=== PATIENT | female | born 1960 | race Caucasian/White ===

== ENCOUNTER 2020-04-05 07:08 | Outpatient (REF) | payer OTHER, SELFPAY ==
[2020-04-05 11:35] LABS: Estimated Average Glucose 128 mg/dL; Hemoglobin A1C 150.0443 umol/L; Hemoglobin A1c % 6.1 %
[2020-04-05 12:01] LABS: Anion Gap 15 (12-20); Blood Urea Nitrogen 12 mg/dL (9-16); Calcium 9.1 mg/dL (8.4-10.2); Carbon Dioxide 24 mmol/L (22-29); Chloride 105 mmol/L (96-108); Estimated Glomerular Filt Rate > 60; Glucose Fasting 104 mg/dL (60-99); Potassium 4.2 mmol/l (3.3-5.1); Sodium 140 mmol/L (135-145); Vitamin D 25-OH Total 47.1 ng/mL (>30)
== END 2020-04-05 07:09 | disposition home or self-care (01) ==
LOC: HO.HMGCLDS 07:08
PROVIDERS: PCP Internal Medicine; Visit Provider Internal Medicine
DX: E55.9 Vitamin D deficiency, unspecified (principal); R73.01 Impaired fasting glucose; I10 Essential (primary) hypertension
CPT/HCPCS: 80048; 82306; 83036

== ENCOUNTER 2020-04-30 07:18 | Outpatient (REF) | payer OTHER, SELFPAY ==
--- NOTE | 2020-04-30 07:24 | MM_ITS ---
EXAMINATION: MM SCREENING DIGITAL BREAST TOMOSYNTHESIS, BILATERAL CLINICAL INFORMATION: Screening. Asymptomatic. The lifetime risk of breast cancer based on the Tyrer-Cuzick Model is 11%. COMPARISON: Mammography: 04/10/2013, 10/25/2010 TECHNIQUE: Digital breast tomosynthesis is performed in both the craniocaudal and mediolateral oblique views along with computer-aided detection (CAD). Synthesized 2D images are generated from the tomosynthesis. FINDINGS: There are scattered areas of fibroglandular density (ACR BI-RADS breast composition Category b). There are no significant masses, abnormal calcifications, or other abnormalities. The axilla and skin contours are unremarkable. MM/MM tomosynthesis screening BI IMPRESSION: No mammographic evidence of malignancy. ASSESSMENT: BI-RADS 1: Negative RECOMMENDATION: Routine annual mammography screening. This patient's information was entered into a reminder system with a target due date for their next mammogram.
== END 2020-04-30 07:19 | disposition home or self-care (01) ==
LOC: HO.MAMMO 07:18
PROVIDERS: PCP Internal Medicine; Visit Provider Internal Medicine
DX: Z78.0 Asymptomatic menopausal state (principal)
CPT/HCPCS: 77063; 77067

== ENCOUNTER 2020-06-01 09:32 | Outpatient (REF) | payer OTHER, SELFPAY ==
--- NOTE | 2020-06-01 | MM_ITS ---
EXAMINATION: BONE DENSITOMETRY CLINICAL INDICATION: Asymptomatic menopausal state. COMPARISON: Baseline BD dated 11/24/2011. TECHNIQUE: Using a [employer] DXA System (software version: 13.1) manufactured by [employer], dual-energy x-ray absorptiometry was performed of the lumbar spine and left hip. The images are of good technical quality. Summary results are attached. FINDINGS: AP SPINE L1-L4: Current: BMD 1.198 g/cm2, Z-score 1.3, T-score 0.2, normal, 13.5% decrease from baseline (<5% change is not significant). Baseline: BMD 1.385 g/cm2. LEFT FEMUR, NECK: Current: BMD 1.063 g/cm2, Z-score 1.4, T-score 0.2, normal. Baseline: BMD 1.257 g/cm2. LEFT FEMUR, TOTAL: Current: BMD 1.177 g/cm2, Z-score 2.2, T-score 1.3, normal, 13.8% decrease from baseline (<5% change is not significant). Baseline: BMD 1.366 g/cm2. IDENTIFIED RISK FACTORS: Menopause. HISTORY OF FRACTURE: None listed. MEDICATIONS: None listed. MM/XR DEXA axial skeleton IMPRESSION: 1. DIAGNOSIS: Normal bone density based on the lowest T-score value of 0.2 in the lumbar spine and femoral neck applying World Health Organization criteria. 2. 10-YEAR FRACTURE RISK PREDICTION, FRAX: Major osteoporotic fracture (clinical spine, forearm, hip or shoulder) 6.0%. Hip fracture 0.1%. 3. Treatment Recommendations: NOF guidelines recommend consideration for treatment in postmenopausal women and men age 50 and older presenting with the following: -A hip or vertebral (clinical or morphometric) fracture. -T-score less than or equal to -2.5 at the femoral neck or spine after appropriate evaluation to exclude secondary causes. -Low bone mass at the hip or spine and a 10-year fracture probability by FRAX of greater than or equal to 3% for hip fracture or greater than or equal to 20% for major osteoporotic fracture based on the [place] adapted WHO algorithm. 4. Other Recommendations: All treatment decisions require clinical judgment and consideration of individual patient factors, including patient preferences, comorbidities, previous drug use, risk factors not captured in the FRAX model (e.g. frailty, falls, vitamin D deficiency, increased bone turnover, interval significant decline in bone density) and possible under or overestimation of fracture risk by FRAX. FUTURE SCAN RECOMMENDATION: People with diagnosed cases of osteoporosis or at high risk for fracture should have regular bone mineral density tests. For patients eligible for Medicare, routine testing is allowed once every 2 years. The testing frequency can be increased to one year for patients who have rapidly progressing disease, those who are receiving or discontinuing medical therapy to restore bone mass, or have additional risk factors.
== END 2020-06-01 09:33 | disposition home or self-care (01) ==
LOC: HO.MAMMO 09:32
PROVIDERS: PCP Internal Medicine; Visit Provider Internal Medicine
DX: Z13.820 Encounter for screening for osteoporosis (principal); Z78.0 Asymptomatic menopausal state
CPT/HCPCS: 77080

== ENCOUNTER 2020-06-17 06:25 | Day surgery (SDC) | payer BC, SELFPAY ==
[2020-06-11 12:40] VITALS: BMI 28.7
--- NOTE | 2020-06-16 08:25 | P.CONAN_ITS ---
Documented by User: Joan Quijano 06/16/20 08:25 HPI - Anesthesia Eval Consult details Narrative: 60yo F for Colonoscopy [facility] Past Medical History Medical History Essential hypertension Hypertriglyceridemia Impaired fasting glucose Influenza vaccination declined Menopausal and postmenopausal disorder Family History Family History Father Medical history non-contributory Mother Bladder cancer Breast cancer Maternal Aunt Breast cancer Brother No problems noted. Sister No problems noted. Daughter No problems noted. Surgical History Surgical History No pertinent past surgical history Social History Social History Alcohol intake: current Smoking Status: Former smoker Second Hand Smoke Exposure: No Use of substances other than those prescribed or required for medical reasons: No Advance Directives: No Advance Directives Information Provided: No Advance Directives on File: No Meds Allergies Allergy/AdvReac Type Severity Reaction Status Date / Time No Known Allergies Allergy Verified 04/22/20 08:17 Home Medications Medication Instructions Recorded Confirmed Type cholecalciferol (vitamin D3) 1,250 1,250 mcg PO QWEEK 04/22/20 06/11/20 History mcg (50,000 unit) capsule lisinopril 10 mg tablet 10 mg PO DAILY 04/22/20 06/17/20 History Exam Exam Date and Time: June 16, 2020 0825 Height,Weight and Vital Signs: Height 5 ft 1 in Weight 69 kg Assessment and Plan Assessment Anesthesia Assessment: Chart Reviewed Documented by User: Eliu Steinberg 06/17/20 07:42 [facility] Past Medical History Medical History Essential hypertension Hypertriglyceridemia Impaired fasting glucose Influenza vaccination declined Menopausal and postmenopausal disorder Family History Family History Father Medical history non-contributory Mother Bladder cancer Breast cancer Maternal Aunt Breast cancer Brother No problems noted. Sister No problems noted. Daughter No problems noted. Surgical History Surgical History No pertinent past surgical history Social History Social History Alcohol intake: current Smoking Status: Former smoker Second Hand Smoke Exposure: No Use of substances other than those prescribed or required for medical reasons: No Advance Directives: No Advance Directives Information Provided: No Advance Directives on File: No Meds Allergies Allergy/AdvReac Type Severity Reaction Status Date / Time No Known Allergies Allergy Verified 04/22/20 08:17 Home Medications Medication Instructions Recorded Confirmed Type cholecalciferol (vitamin D3) 1,250 1,250 mcg PO QWEEK 04/22/20 06/11/20 History mcg (50,000 unit) capsule lisinopril 10 mg tablet 10 mg PO DAILY 04/22/20 06/17/20 History Exam Airway Mallampati Class: II TM Dist: >3cm Neck ROM: Full Loose/Missing/Broken Teeth: No Heart: [id number] Lungs: cta b/l Assessment and Plan Assessment Anesthesia Assessment: Anesthesia Plan Discussed, PAT Visit and Chart Reviewed Final Anesthetic Review NPO: Yes ASA Class: II Final Preanesthetic Review: No Changes in Pt Med Stat, Meds/Allgs Chart Reviewed, Consent Obtained/Reviewed and Anes Risks/Benef Reviewed Patient Risk: Low Procedure Risk: Low Assessment/Block/Sedation in SS: Assess/Block/Sedation-SS Anesthetic Plan Anesthetic Plan: MAC: and Agree w/ Assess. and Plan Disposition: Standard PACU
[2020-06-17 06:54] VITALS: BP 141/79; PULSE 108; RESP 16; TEMP 36.3; O2SAT 97
[2020-06-17] MEDS: Lactated Ringers 1,000 ML 100 ML IVCONT (06:59)
--- NOTE | 2020-06-17 07:02 | PC.NURSE ---
weight 151 pounds per patient, height 5'1
--- NOTE | 2020-06-17 07:43 | MHC.SHP ---
Pre-Procedural Eval Section B Chief Complaint: Screening Details of Present Illness: Colon cancer screening (Sister with polyp on 5yr recall.) Relevant Family History (Specify if Yes): Yes Relevant Social History: None Present Medications: see Short Stay Collaborative assessment Medical History: Significant History (Hypertension) History of Previous Operations: No relevant previous surgery Allergies: Allergies Allergy/AdvReac Type Severity Reaction Status Date / Time No Known Allergies Allergy Verified 04/22/20 08:17 Review of Systems Sugical H&P ROS: Negative: Constitution, Cardiovascular, Respiratory, Gastrointestinal and Musculoskeletal Exam Surgical H&P Exam: Normal: HEENT, Normal: Heart, Normal: Extremities and Normal: Abdomen Plan Diagnosis/Plan: Unchanged I have reviewed the history and physical and performed a pertinent YES physical examination on my patient. No changes have occurred unless specified.
--- NOTE | 2020-06-17 08:28 | PM.PROC ---
Brief Operative Note Date of procedure: 06/17/20 Pre-op diagnosis: COLON CANCER SCREENING-+ FAM HX Post-op diagnosis: other (POLYPS, MINOR DIVERTICULOSIS, INTERNAL HEMORRHOIDS) Procedure: COLONOSCOPY WITH EXCISIONAL POLYPECTOMIES X 3 Anesthesia: MAC (DAVID TURCIOS) Surgeon: Suzy Denise Estimated blood loss (mL): 5 Pathology: other (30-35CM, RECTAL-4CM-? SERRATED?? 2) Condition: stable Disposition: PACU
[2020-06-17 08:30] VITALS: BP 89/57; PULSE 85; RESP 16; TEMP 36.5; O2SAT 96
[2020-06-17 08:31] VITALS: BP 91/57
[2020-06-17 08:45] VITALS: BP 109/71; PULSE 81; RESP 22; TEMP 36.9; O2SAT 96
--- NOTE | 2020-06-17 09:12 | HO.POSTANES ---
Post Anesthesia Evaluation Post Anesthesia Evaluation Vital Signs: Vital Signs Temp Pulse Resp BP Pulse Ox 06/17/20 08:45 98.4 F 81 22 H 109/71 96 06/17/20 08:31 91/57 L 06/17/20 08:30 97.7 F 85 16 89/57 L 96 06/17/20 06:54 97.3 F 108 H 16 141/79 H 97 Anesthesia: Monitored Mental Status: Awake Pain Control: Satisfactory Nausea/Vomiting: None Hydration: Adequate Anesthesia-Related Issues: No Anes. Related Issues
--- NOTE | 2020-06-17 10:18 | OP_ITS ---
SURGEON: Suzy Denise MD PREOPERATIVE DIAGNOSIS: Positive family history in a sister with colonic polyp. This is the patient's screening colonoscopy #1. Primary care provider, Dr. Brito. POSTOPERATIVE DIAGNOSIS:see below. ESTIMATED BLOOD LOSS: Less than 5 cc. COMPLICATIONS: None. ANESTHESIA Monitored ANESTHESIOLOGIST: Musa Son CRNA. ASSISTANTS: None. SPECIMENS: Specimens removed; 35 cm; diminutive rectal polyp, approximately 4 cm from the anorectal verge (question appearance of serrated change). POSTOPERATIVE DIAGNOSES: Colonic polyps, diverticulosis, and internal hemorrhoids. ADZ WORKER: Suzy Denise M.D. PROCEDURES PERFORMED: Colonoscopy with excisional polypectomies x3. CONDITION POSTOP: Stable. DESCRIPTION OF PROCEDURE: Digital rectal exam revealed no specific lesion. Video colonoscope was introduced without difficulty, navigated into the rectosigmoid, sigmoid. This area had scattered diverticula. Scope slowly advanced through a degree of spasm. The polyp was identified between 30 and 35 cm. This was removed excisionally, diminutive in nature. Scope continued to be advanced through descending, transverse, and ascending colon down into the cecum. There was no clear appendiceal orifice seen. There was texturing change in the area where one would expect the appendix to be. Cecum and ileocecal valve were normal. No mucosal abnormalities were noted in the cecum. There were some pinpoint areas of prep-induced hemorrhage in the proximal ascending colon. The prep itself was good to excellent. Scope was slowly withdrawn. Good rotational views. We re-approached the sigmoid. CO2 insufflation was changed to air insufflation to better visualize the territory due to spasm. Once in the rectum, there was a polyp, approximately 4 cm from the anorectal verge. Had more of a scalloped edge into it raising a question of serrated changes. This was removed excisionally with cold biopsy forceps. There was a second polyp with variable cryptic pattern that was small that was also removed. They were submitted as one specimen. 1 to 2+ internal hemorrhoids were noted in the anal canal. PLAN AND CURRENT RECOMMENDATIONS: Repeat asymptomatic screening with a sister with adenomatous polyps is going to be 5 years regardless. TYPE OF ANESTHESIA: Monitored. GRAFT OR IMPLANTS: None. Suzy Denise MD MEN/MODL / [id number] MTDD
== END 2020-06-17 09:09 | disposition home or self-care (01) ==
PROVIDERS: PCP Internal Medicine; Visit Provider Internal Medicine Gastroenterology
PROC: 0DJD8ZZ Inspection of Lower Intestinal Tract, Via Natural or Artificial Opening Endoscopic (ICD-10-PCS; CPT 45378; principal; 2020-06-17 07:30)
DX: Z12.11 Encounter for screening for malignant neoplasm of colon (principal); Z80.0 Family history of malignant neoplasm of digestive organs; Z83.71 Family history of colonic polyps; K63.5 Polyp of colon; K62.1 Rectal polyp; K57.30 Diverticulosis of large intestine without perforation or abscess without bleeding; K64.8 Other hemorrhoids; I10 Essential (primary) hypertension; Z79.899 Other long term (current) drug therapy
CPT/HCPCS: 45380; 88305

== ENCOUNTER → 2020-06-30 07:51 | Outpatient (BNVA) | payer BC, SELFPAY | PROVIDERS: PCP Internal Medicine; Visit Provider Physician Assistant | DX: Z76.89 Persons encountering health services in other specified circumstances (principal) ==

== ENCOUNTER 2020-07-30 06:21 | Outpatient (REF) | payer BC, SELFPAY ==
[2020-07-30 11:39] LABS: Estimated Average Glucose 123 mg/dL; Hemoglobin A1C 149.4902 umol/L; Hemoglobin A1c % 5.9 %
[2020-07-30 12:35] LABS: Anion Gap 18 (12-20); Blood Urea Nitrogen 14 mg/dL (9-16); Calcium 9.6 mg/dL (8.4-10.2); Carbon Dioxide 20 mmol/L (22-29); Chloride 104 mmol/L (96-108); Cholesterol 198 mg/dL; Estimated Glomerular Filt Rate > 60; Glucose Fasting 106 mg/dL (60-99); HDL Cholesterol 71 mg/dL; LDL Cholesterol Calculated 106 mg/dl; Potassium 4.1 mmol/L (3.3-5.1); Sodium 138 mmol/L (135-145); Triglycerides 108 mg/dL
== END 2020-07-30 06:22 | disposition home or self-care (01) ==
LOC: HO.HMGCLDS 06:21
PROVIDERS: PCP Internal Medicine; Visit Provider Internal Medicine
DX: I10 Essential (primary) hypertension (principal); R73.01 Impaired fasting glucose; E78.1 Pure hyperglyceridemia
CPT/HCPCS: 36415; 80048; 80061; 83036

== ENCOUNTER 2021-01-11 06:17 | Outpatient (REF) | payer BC, SELFPAY ==
[2021-01-11 12:06] LABS: Alanine Aminotransferase 22 U/L (0-31); Anion Gap 17 (12-20); Aspartate Amino Transferase 24 U/L (5-31); Blood Urea Nitrogen 14 mg/dL (9-16); Calcium 9.9 mg/dL (8.4-10.2); Carbon Dioxide 20 mmol/L (22-29); Chloride 102 mmol/L (96-108); Estimated Glomerular Filt Rate 50; Glucose Fasting 114 mg/dL (60-99); Potassium 3.8 mmol/L (3.3-5.1); Sodium 135 mmol/L (135-145)
== END 2021-01-11 06:18 | disposition home or self-care (01) ==
LOC: HO.HMGCLDS 06:17
PROVIDERS: PCP Internal Medicine; Visit Provider Internal Medicine
DX: E78.1 Pure hyperglyceridemia (principal); I10 Essential (primary) hypertension; N95.9 Unspecified menopausal and perimenopausal disorder; R73.01 Impaired fasting glucose
CPT/HCPCS: 36415; 80048; 82306; 84450; 84460

== ENCOUNTER 2021-05-14 07:27 | Outpatient (REF) | payer BC, SELFPAY ==
--- NOTE | ~2021-05-14 | MM_ITS ---
EXAMINATION: MM SCREENING DIGITAL BREAST TOMOSYNTHESIS, BILATERAL CLINICAL INFORMATION: Screening. Asymptomatic. The lifetime risk of breast cancer based on the Tyrer-Cuzick Model is 11%. COMPARISON: Mammography: 04/30/2020, 04/10/2013 TECHNIQUE: Digital breast tomosynthesis is performed in both the craniocaudal and mediolateral oblique views along with computer-aided detection (CAD). Synthesized 2D images are generated from the tomosynthesis. FINDINGS: There are scattered areas of fibroglandular density (ACR BI-RADS breast composition Category b). There are no significant masses, abnormal calcifications, or other abnormalities. There are no significant changes from prior studies. No developing density. Parenchymal pattern is similar to prior exams. MM/MM tomosynthesis screening BI IMPRESSION: No mammographic evidence of malignancy. ASSESSMENT: BI-RADS 1: Negative RECOMMENDATION: Routine annual mammography screening. This patient's information was entered into a reminder system with a target due date for their next mammogram.
== END 2021-05-14 07:28 | disposition home or self-care (01) ==
LOC: HO.MAMMO 07:27
PROVIDERS: PCP Internal Medicine; Visit Provider Internal Medicine
DX: Z12.31 Encounter for screening mammogram for malignant neoplasm of breast (principal)
CPT/HCPCS: 77063; 77067

== ENCOUNTER 2021-07-07 07:17 | Outpatient (REF) | payer BC, SELFPAY ==
[2021-07-07 11:20] LABS: MANUAL DIFF FLAG NO
[2021-07-07 11:30] LABS: Basophils Percent Auto 0.5 % (0-2); Eosinophils Absolute Auto 0.1 X10*3/uL (0.0-0.4); Eosinophils Percent Auto 1.3 % (0-4); Hematocrit 39.1 % (37.0-47.0); Hemoglobin 13.6 g/dl (12.0-16.0); Imm Gran Abs Auto 0.06 X10*3/uL (0.00-0.03); Imm Gran Pct Auto 0.8 % (0.0-0.4); Lymphocytes Percent Auto 26.9 % (20-40); Mean Corpuscular HGB Conc 34.8 g/dl (31.0-35.0); Mean Corpuscular Volume 97.8 fL (80.0-98.0); Mean Platelet Volume 10.7 fL (9.4-12.3); Monocytes Absolute Auto 0.7 X10*3/uL (0.1-1.2); Monocytes Percent Auto 9.8 % (2-11); Neutrophils Absolute Auto 4.5 x10*3/uL (2.0-8.3); Neutrophils Percent Auto 60.7 % (45-73); Platelet Count 322 X10*3/uL (160-400); Red Cell Distribution Width 12.5 % (11.0-16.0); White Blood Count 7.4 X10*3/uL (4.8-10.8)
[2021-07-07 11:43] LABS: Estimated Average Glucose 128 mg/dL; Hemoglobin A1C 150.0057 umol/L; Hemoglobin A1c % 6.1 %
[2021-07-07 11:59] LABS: Alanine Aminotransferase 23 U/L (0-31); Anion Gap 16 (12-20); Aspartate Amino Transferase 29 U/L (5-31); Blood Urea Nitrogen 13 mg/dL (9-16); Carbon Dioxide 21 mmol/L (22-29); Chloride 100 mmol/L (96-108); Cholesterol 205 mg/dL; Estimated Glomerular Filt Rate > 60; Glucose Fasting 114 mg/dL (60-99); HDL Cholesterol 74 mg/dL; LDL Cholesterol Calculated 109 mg/dl; Sodium 133 mmol/L (135-145); Triglycerides 114 mg/dL
[2021-07-07 12:02] LABS: TSH reflex Free T4 0.89 uIU/mL (0.32-4.0); Vitamin D 25-OH Total 48.9 ng/mL (>30)
== END 2021-07-07 07:18 | disposition home or self-care (01) ==
LOC: HO.HMGCLDS 07:17
PROVIDERS: Visit Provider Internal Medicine
DX: E55.9 Vitamin D deficiency, unspecified (principal); I10 Essential (primary) hypertension; N95.9 Unspecified menopausal and perimenopausal disorder; R73.01 Impaired fasting glucose
CPT/HCPCS: 36415; 80048; 80061; 82306; 83036; 84443; 84450; 84460; 85025

== ENCOUNTER 2022-05-12 06:33 | Outpatient (REF) | payer BC, SELFPAY ==
[2022-05-12 12:17] LABS: Estimated Average Glucose 123 mg/dL; Hemoglobin A1C 148.4399 umol/L; Hemoglobin A1c % 5.9 %
[2022-05-12 13:28] LABS: Anion Gap 14 (12-20); Blood Urea Nitrogen 14 mg/dL (9-16); Calcium 10.1 mg/dL (8.4-10.2); Carbon Dioxide 22 mmol/L (22-29); Chloride 99 mmol/L (96-108); Estimated Glomerular Filt Rate > 60; Glucose Fasting 115 mg/dL (60-99); Potassium 3.8 mmol/L (3.3-5.1); Sodium 131 mmol/L (135-145); Vitamin D 25-OH Total 45.6 ng/mL (>30)
== END 2022-05-12 06:34 | disposition home or self-care (01) ==
LOC: HO.HMGCLDS 06:33
PROVIDERS: PCP Internal Medicine; Visit Provider Internal Medicine
DX: I10 Essential (primary) hypertension (principal); R73.01 Impaired fasting glucose; Z78.0 Asymptomatic menopausal state
CPT/HCPCS: 36415; 80048; 82306; 83036

== ENCOUNTER 2022-05-31 07:32 | Outpatient (REF) | payer BC, SELFPAY ==
--- NOTE | ~2022-05-31 | MM_ITS ---
EXAMINATION: MM SCREENING DIGITAL BREAST TOMOSYNTHESIS, BILATERAL CLINICAL INFORMATION: Screening. Asymptomatic. The lifetime risk of breast cancer based on the Tyrer-Cuzick Model is 14.5%. COMPARISON: Mammography: May 14, 2021 and studies dating back to April 10, 2013 TECHNIQUE: Digital breast tomosynthesis is performed in both the craniocaudal and mediolateral oblique views along with computer-aided detection (CAD). Synthesized 2D images are generated from the tomosynthesis. FINDINGS: The breasts are heterogeneously dense, which may obscure small masses (ACR BI-RADS breast composition Category c). There are no significant masses, abnormal calcifications, or other abnormalities. MM/MM tomosynthesis screening BI IMPRESSION: No significant changes from prior exam. ASSESSMENT: BI-RADS 1: Negative RECOMMENDATION: Routine annual mammography screening. This patient's information was entered into a reminder system with a target due date for their next mammogram.
== END 2022-05-31 07:33 | disposition home or self-care (01) ==
LOC: HO.MAMMO 07:32
PROVIDERS: PCP Internal Medicine; Visit Provider Internal Medicine
DX: Z12.31 Encounter for screening mammogram for malignant neoplasm of breast (principal)
CPT/HCPCS: 77063; 77067

== ENCOUNTER 2023-03-27 06:11 | Outpatient (REF) | payer BC, SELFPAY ==
[2023-03-27 12:06] LABS: Alanine Aminotransferase 16 U/L (0-31); Anion Gap 18 (12-20); Aspartate Amino Transferase 21 U/L (5-31); Blood Urea Nitrogen 14 mg/dL (9-16); Calcium 10.2 mg/dL (8.4-10.2); Carbon Dioxide 19 mmol/L (22-29); Chloride 99 mmol/L (96-108); Cholesterol 183 mg/dL (<200); Estimated Glomerular Filt Rate > 60; Glucose Fasting 120 mg/dL (60-99); HDL Cholesterol 69 mg/dL (>40); LDL Cholesterol Calculated 88 mg/dL (<100); Potassium 3.6 mmol/L (3.3-5.1); Sodium 132 mmol/L (135-145); Triglycerides 133 mg/dL (<150)
== END 2023-03-27 06:12 | disposition home or self-care (01) ==
LOC: HO.HMGCLDS 06:11
PROVIDERS: PCP Internal Medicine; Visit Provider Internal Medicine
DX: N95.9 Unspecified menopausal and perimenopausal disorder (principal); R73.01 Impaired fasting glucose; I10 Essential (primary) hypertension
CPT/HCPCS: 36415; 80048; 80061; 84450; 84460

== ENCOUNTER 2023-04-24 08:16 | Outpatient (AMB) | payer BC, SELFPAY ==
--- NOTE | 2023-04-24 08:22 | A.OFFPC_ITS ---
Vital Signs 04/24/23 08:23 Height 5 ft 1 in Weight 148 lb 2 oz BMI 28.0 BP 130/76 Blood Pressure Location Rt brachial Position Sitting Pulse 83 Pulse Source Pulse Oximeter Pulse Oximetry (%) 98 Oxygen Delivery Method Room Air Intake Visit Reasons: Physical exam Intake Note: pt is here for a PE pt does not want flu vaccine pt has not had covid booster for this year yet Allergies No Known Allergies Allergy (Verified 04/24/23 08:47) Medication List - Last Reconciled 04/24/23 by Lisbeth Brito MD amlodipine 10 mg PO DAILY blood pressure monitor check blood pressure once a day cholecalciferol (vitamin D3) 50 mcg PO DAILY lisinopril-hydrochlorothiazide 20-25 mg 1 tab PO QAM metoprolol succinate ER 25 mg PO DAILY Tobacco use date assessed: 04/24/23 Fall risk assessment: No Falls in past year Last assessed Fall Risk: 04/24/23 Dental Screening Dental Screen Date: 04/24/23 Did you have a dental visit in the last 12 months?: No Did you have a dental problem in the last 6 months where you did not have access to dental care?: No Was dental information given to patient?: Yes HPI Physical exam HPI Details 63-year-old lady here today for her phys ical exam. She has hypertension currently on amlodipine, lisinopril-HCTZ and metoprolol succinate. Has been compliant with taking medications. Recent fasting labs also showed presence of impaired fasting glucose with a fasting glucose at 120 mg/dL and hyponatremia. She is up-to-date with her screening colonoscopy done in [address] Denise, due again in 2030. Had a normal Pap smear done in 2019 with negative findings for HPV, no malignancy seen, due again in 2024. She had her screening mammogram done May 2022, due again next month. [facility] Medical History (Updated 04/24/23 @ 09:08 by Lisbeth Brito MD) Immunization refused Intermittent palpitations Influenza vaccination declined Menopausal and postmenopausal disorder Impaired fasting glucose Essential hypertension Surgical History No pertinent past surgical history Family History Father Medical history non-contributory Mother Bladder cancer Breast cancer Maternal Aunt Breast cancer Brother No problems noted. Sister Colon adenomas Daughter No problems noted. Social History Housing: Apartment Alcohol intake: current Patient Tobacco Use Status: Former Tobacco user Years Smoked: 25 yrs e-Cigarette/Vaping Use: Never Used Second Hand Smoke Exposure: No service: No Current occupational status: employed Current occupation: erum at [employer] Current occupational exposures/hazards: No Cognitive needs: No Hearing needs: No Vision needs: Yes Questionnaire PHQ-9 Over the last 2 weeks, how often have you been bothered by any of the following problems? Depression Screening Interpretation: Negative Depression Screening Done: Yes 80424 - PHQ-9 Billing: Yes Source: Developed by Drs. Seamus Das, Suzie Horton, Tino Pizarro and colleagues, with an educational jerad from [employer]. Thrive Questionnaire Date Thrive assessed: 11/21/22 NERY-7 AMB Questionnaire NERY-7 Date NERY - 7 assessed: 11/21/22 Source: Developed by Drs. Seamus Das, Suzie Horton, Tino Pizarro and colleagues, with an educational jerad from [employer]. Review of Systems Const Denies body aches, Denies fatigue, Denies fever(s), Denies headache(s) and Denies weakness Eyes Details: goes to [facility] Denies change in vision ENT Denies dizziness, Denies headache(s), Denies nasal congestion, Denies nasal discharge and Denies sore throat Card Denies chest pain, Denies lightheadedness and Denies dyspnea Resp Denies chest congestion, Denies cough, Denies dyspnea and Denies wheezing GI Denies abdominal pain, Denies change in bowel habits and Denies heartburn Denies urinary frequency, Denies dysuria and Denies urinary urgency Musc Reports no additional complaints Skin/Breast Denies breast swelling, Denies breast pain, Denies breast mass, Denies lesions and Denies rash Neuro Denies dizziness, Denies headache(s) and Denies weakness Psych Reports no additional complaints Endo Denies fatigue, Denies polydipsia and Denies polyuria Spike/Lymph Reports no additional complaints Aller/Immun Denies seasonal rhinorrhea and Denies wheezing Physical exam (Primary Care) Vital Signs: Last Vital Signs Pulse 83 04/24/23 08:23 BP 140/76 H 04/24/23 08:23 Pulse Ox 98 04/24/23 08:23 Oxygen Delivery Method Room Air 04/24/23 08:23 BMI result Body Mass Index 28.0 Tobacco/Smoking Status: Tobacco use Status Tobacco use date assessed 04/24/23 04/24/23 08:28 Patient Tobacco Use Status Former Tobacco user 04/24/23 08:22 e-Cigarette/Vaping Use Never Used 04/24/23 08:22 Depression Screening Interpretation: Negative Thrive Assessment: Date of Thrive Assessment Date Thrive assessed 11/21/22 04/24/23 08:22 Const General: cooperative, comfortable and no acute distress Orientation/consciousness: patient oriented x3 Limitations: no limitations HENMT Ears: hearing grossly normal bilaterally, external ears normal, TM's normal bilaterally and EAC's normal General nose exam: Normal external nose present and No nasal discharge present Mouth: oropharynx normal and moist mucous membranes Teeth and gingiva: dentures and edentulous Eyes General: appearance normal, both eyes and all related structures Neck Neck: Yes full ROM, Yes no lymphadenopathy and Yes supple Chest Chest palpation & inspection: normal inspection of the chest and normal palpation of entire chest wall Breast/axilla inspection: normal inspection of the breasts Breast/axilla palpation: normal palpation of the breasts and normal palpation of the axillae Resp Effort & Inspection: normal respiratory effort and able to speak in complete sentences Auscultation: clear to auscultation bilaterally Cardio Rate: regular rate Rhythm: regular rhythm Heart sounds: S1 normal heart sound present and S2 normal heart sound present Peripheral pulses: Peripheral pulses 2+ throughout GI Inspection: Yes normal to inspection Palpation (GI): Soft to palpation, nontender, no guarding and no masses Auscultation: normal bowel sounds General: Yes no CVA tenderness Back/Spine/Pelvis Back: no CVA tenderness Skin General skin exam: no rashes or lesions noted Neuro General: patient oriented x3, gait normal, tone normal, moves all extremities, Normal light touch and pain sensation and no focal motor deficits Cognition (Neuro): normal cognition Gait exam (Neuro): Normal gait present Motor exam (neuro): 5/5 motor strength present throughout Extrem General: Yes full ROM, Yes no joint enlargement, Yes no clubbing, cyanosis or edema, Yes no calf tenderness and Yes normal gait Psych Appearance: grossly normal and well kempt Mental Status: mental status grossly normal Speech and movement: Normal speech and movement present Affect: normal affect Attitude: cooperative Thought process: Normal thought process present Thought content: Normal thought content present Results Reviewed Results Reviewed: ENTERED: 03/27/23 ROMI DRAKE: ORDERED: Met Prof Fast, AST, ALT, Lipid Panel Test Result Flag Reference Site Sodium 132 L 135-145 mmol/L Potassium 3.6 3.3-5.1 mmol/L CL 99 96-108 mmol/L CO2 19 L 22-29 mmol/L Gap 18 12-20 BUN 14 9-16 mg/dL Creat 0.86 0.5-1.4 mg/dL EGFR > 60 NOTE: For -Stateless individuals, multiply the result by 1.210. Chronic Kidney Disease: Estimated GFR < 60 mL/min/1.73m2 Severe Kidney Disease: Estimated GFR < 15 mL/min/1.73m2 FBS 120 H 60-99 mg/dL A fasting glucose from 100-125 mg/dl is considered impaired (pre-diabetes). CA 10.2 8.4-10.2 mg/dL AST (GOT) 21 5-31 U/L ALT (GPT) 16 0-31 U/L Triglyceride 133 <150 mg/dL Desirable Triglyceride: less than 150 mg/dL Borderline High Triglyceride 150-199 mg/dL High Triglyceride: 200-499 mg/dL Very High Triglyceride: greater than or equal to 5OO mg/dL Cholesterol 183 <200 mg/dL Desirable Cholesterol: less than 200 mg/dL Borderline High Cholesterol: 200-239 mg/dL High Cholesterol: greater than 239 mg/dL LDL Calculated 88 <100 mg/dL Desirable LDL: less than 100 mg/dL Near Optimal/Above Optimal LDL: 110-129 mg/dL Borderline High LDL: 130-159 mg/dL High LDL: 160-189 mg/dL Very High LDL: greater than or equal to 190 mg/dL HDL 69 >40 mg/dL Desirable HDL: greater than 40 mg/dL Note: This HDL assay may give artificially low results in patients with liver disease. Assessment and Plan Assessment & Plan (1) Annual visit for general adult medical examination with abnormal findings: Code(s): Z00.01 - Encounter for general adult medical examination with abnormal findings Plan: Reviewed recent fasting labs with patient, with normal lipids and elevated fasting glucose and hyponatremia present. Will recheck another basic metabolic panel, hemoglobin A1c and a vitamin-D level. She gets regular eye exams, at least every 2 years at [facility]. Take adequate calcium in diet and vitamin-D 3 at 2000 IU per cap once a day, in addition to weight-bearing exercises to help maintain good muscle tone and weight control. Instructed to do self-breast exam, and continue to get yearly mammogram, has appointment already scheduled for 06/2023. UTD with Bone density scan , normal. Colonoscopy screen UTD , , due again in 2025. (2) Impaired fasting glucose: Code(s): R73.01 - Impaired fasting glucose Plan: Your fasting blood sugars were elevated above 100 mg/dL. Ordered a hemoglobin A1c and fasting blood sugar check. Impaired glucose metabolism O2 at risk for developing diabetes mellitus type 2, as well as heart attack and stroke later on. Lifestyle changes at just weight loss, healthy eating habits, and regular exercise are important, and can prevent the progression to diabetes (3) Essential hypertension: Code(s): I10 - Essential (primary) hypertension Plan: Blood pressure at goal of less than 130/80. Continue with current medication. Reinforced importance of following a low sodium diet, getting regular exercise, and lowering stress levels. (4) Influenza vaccination declined: Code(s): Z28.21 - Immunization not carried out because of patient refusal (5) Immunization refused: Code(s): Z28.21 - Immunization not carried out because of patient refusal Orders: Orders Hemoglobin A1c Today I10 - Essential (primary) hypertension, R73.01 - Impaired fasting glucose, Z78.0 - Asymptomatic menopausal state Basic Metabolic Panel Fasting Today I10 - Essential (primary) hypertension, R73.01 - Impaired fasting glucose, Z78.0 - Asymptomatic menopausal state Vitamin D 25-OH Total Today I10 - Essential (primary) hypertension, R73.01 - Impaired fasting glucose, Z78.0 - Asymptomatic menopausal state Medications: Refilled amlodipine 10 mg PO DAILY 90 tabs 3RF I10 - Essential (primary) hypertension lisinopril-hydrochlorothiazide 20-25 mg 1 tab PO QAM 90 caps 3RF metoprolol succinate ER 25 mg PO DAILY 90 tabs 3RF I10 - Essential (primary) hypertension Review Flu Vaccine not done: patient reason Coding Level of Care Code Est Pt Prev Care 40-64y(06160) Diagnoses Annual visit for general adult medical examination with abnormal findings Z00.01 Impaired fasting glucose R73.01 Essential hypertension I10 Influenza vaccination declined Z28.21 Immunization refused Z28.21
[2023-04-24 08:23] VITALS: BP 130/76; PULSE 83; O2SAT 98; BMI 28.0
== END 2023-04-24 10:10 | disposition home or self-care (01) ==
PROVIDERS: PCP Internal Medicine; Visit Provider Internal Medicine
DX: Z00.00 Encounter for general adult medical examination without abnormal findings (principal); R73.01 Impaired fasting glucose; I10 Essential (primary) hypertension; Z28.21 Immunization not carried out because of patient refusal
CPT/HCPCS: 99396

== ENCOUNTER 2023-05-10 06:15 | Outpatient (REF) | payer BC, SELFPAY ==
[2023-05-10 11:45] LABS: Estimated Average Glucose 123 mg/dL; Hemoglobin A1C 148.4395 umol/L; Hemoglobin A1c % 5.9 % (<6.0)
[2023-05-10 12:13] LABS: Anion Gap 14 (12-20); Blood Urea Nitrogen 9 mg/dL (9-16); Calcium 9.8 mg/dL (8.4-10.2); Carbon Dioxide 23 mmol/L (22-29); Chloride 102 mmol/L (96-108); Estimated Glomerular Filt Rate > 60; Glucose Fasting 114 mg/dL (60-99); Potassium 3.4 mmol/L (3.3-5.1); Sodium 136 mmol/L (135-145)
[2023-05-10 12:20] LABS: Vitamin D 25-OH Total 64.6 ng/mL (>30)
== END 2023-05-10 06:16 | disposition home or self-care (01) ==
LOC: HO.HMGCLDS 06:15
PROVIDERS: PCP Internal Medicine; Visit Provider Internal Medicine
DX: R73.01 Impaired fasting glucose (principal); I10 Essential (primary) hypertension; Z78.0 Asymptomatic menopausal state
CPT/HCPCS: 36415; 80048; 82306; 83036

== ENCOUNTER 2023-06-06 07:33 | Outpatient (REF) | payer BC, SELFPAY | END 2023-06-06 07:34 | disposition home or self-care (01) | LOC: HO.MAMMO 07:33 | PROVIDERS: PCP Internal Medicine; Visit Provider Internal Medicine | DX: Z12.31 Encounter for screening mammogram for malignant neoplasm of breast (principal) | CPT/HCPCS: 77063; 77067 ==

== ENCOUNTER → 2023-06-06 07:45 | Outpatient (BNV) | payer BC, SELFPAY | PROVIDERS: PCP Internal Medicine; Visit Provider Radiology Diagnostic Radiology | DX: Z12.31 Encounter for screening mammogram for malignant neoplasm of breast (principal) | CPT/HCPCS: 77063; 77067 ==

== ENCOUNTER 2024-06-12 07:31 | Outpatient (REF) | payer OTHER, SELFPAY | END 2024-06-12 07:32 | disposition home or self-care (01) | LOC: HO.MAMMO 07:31 | PROVIDERS: PCP Internal Medicine; Visit Provider Internal Medicine | DX: Z12.31 Encounter for screening mammogram for malignant neoplasm of breast (principal) | CPT/HCPCS: 77063; 77067 ==

== ENCOUNTER → 2024-06-12 07:45 | Outpatient (BNV) | payer OTHER, SELFPAY | PROVIDERS: PCP Internal Medicine; Visit Provider Internal Medicine | DX: Z12.31 Encounter for screening mammogram for malignant neoplasm of breast (principal) | CPT/HCPCS: 77063; 77067 ==

== ENCOUNTER 2024-07-22 08:33 | Outpatient (AMB) | payer OTHER, SELFPAY ==
--- NOTE | 2024-07-22 09:04 | MHC.PC.OV ---
Vital Signs 07/22/24 09:18 07/22/24 09:54 Height 5 ft 1 in Weight 155 lb BMI 29.3 BP 150/80 H 130/80 Blood Pressure Location Lt brachial Lt brachial Position Sitting Sitting Respiration 18 Pulse 108 H 98 Pulse Source Pulse Oximeter Temp 98.1 F Temp Source Oral Pulse Oximetry (%) 98 Oxygen Delivery Method Room Air Intake Visit Reasons: Annual PE Intake Note: Pt is here today for her PE: Last mammogram 06/12/24, bone density scan 06/01/20, papsmear 12/23/19, colonoscopy 06/17/20 Allergies No Known Allergies Allergy (Verified 07/22/24 09:33) Medication List - Last Reconciled 07/22/24 by Lisbeth Brito MD amlodipine 10 mg PO DAILY blood pressure monitor check blood pressure once a day cholecalciferol (vitamin D3) 50 mcg PO DAILY lisinopril-hydrochlorothiazide 20-25 mg 1 tab PO QAM metoprolol succinate ER 25 mg PO DAILY Tobacco use date assessed: 07/22/24 Fall risk assessment: No Falls in past year Last assessed Fall Risk: 07/22/24 Dental Screening Dental Screen Date: 07/22/24 Did you have a dental visit in the last 12 months?: No Did you have a dental problem in the last 6 months where you did not have access to dental care?: No Was dental information given to patient?: Patient has dentist HPI Annual PE HPI Details 64-year-old lady with history of hypertension, and impaired fasting glucose, here today for physical exam. She is up-to-date with her breast cancer screening, last done 06/12/2024 with benign finding. Last Pap smear was done in 2019 with benign findings, declined further cervical cancer screen /pelvic exam . Last bone density was done 06/01/2020 which showed normal bone density. Her last screening colonoscopy was done by Dr. Denise in 2020 with removal of hyperplastic polyp, repeat due again in 2030 Patient does not want to get any vaccinations Hypertension has been managed with amlodipine and lisinopril. Recorded blood pressure during today's visit was 130/80. [facility] Medical History Immunization refused Intermittent palpitations Influenza vaccination declined Menopausal and postmenopausal disorder Impaired fasting glucose Essential hypertension Surgical History No pertinent past surgical history Family History Father Medical history non-contributory Mother Bladder cancer Breast cancer Maternal Aunt Breast cancer Brother No problems noted. Sister Colon adenomas Daughter No problems noted. Social History Housing: Apartment Alcohol intake: current Patient Tobacco Use Status: Former Tobacco user Years Smoked: 25 yrs e-Cigarette/Vaping Use: Never Used Second Hand Smoke Exposure: No service: No Current occupational status: retired Current occupation: erum at [employer] Current occupational exposures/hazards: No Cognitive needs: No Hearing needs: No Vision needs: Yes Questionnaire PHQ-9 Over the last 2 weeks, how often have you been bothered by any of the following problems? 1. Little interest or pleasure in doing things: not at all 2. Feeling down, depressed, or hopeless: not at all 3. Trouble falling or staying asleep, or sleeping too much: not at all 4. Feeling tired or having little energy: not at all 5. Poor appetite or overeating: not at all 6. Feeling bad about yourself - or that you are a failure or have let yourself or your family down: not at all 7. Trouble concentrating on things, such as reading the newspaper or watching television: not at all 8. Moving or speaking so slowly that other people could have noticed. Or the opposite - being so fidgety or restless that you have been moving around a lot more than usual: not at all 9. Thoughts that you would be better off or of hurting yourself in some way: not at all Total score: 0 Depression Screening Interpretation: Negative Depression Screening Done: Yes 26738 - PHQ-9 Billing: Yes Source: Developed by Drs. Seamus Das, Suzie Horton, Tino Pizarro and colleagues, with an educational jerad from [employer]. Thrive Questionnaire Date Thrive assessed: 07/15/24 I am a: Patient What is your living situation today?: I have a steady place to live Within the past 12 months, did the food you bought not last and you didn't have the money to get more?: Never true Within the past 12 months, did you worry whether your food would run out before you got money to buy more?: Often true Do you have trouble paying for medicines?: No Do you have trouble getting transportation to medical appointments?: No Do you have trouble paying your heating and electricity bill?: No Do you have trouble taking care of your child, family member or friend?: No Do you have trouble with day-to-day activities such as bathing, preparing meals, shopping, managing finances, etc.?: No Are you currently unemployed and looking for a job?: No Are you interested in more education?: No Please select the resources that you would like help with: None Currently or been in a relationship where the following occur: No concerns reported THRIVE Score: 1 AUDIT C Alcohol Use Questionnaire (AUDIT-C) 1. How often do you have a drink containing alcohol?: Monthly or less 2. How many drinks containing alcohol do you have on a typical day when you are drinking?: 1 or 2 3. How often do you have six or more drinks on one occasion?: Never Total Score: 1 NERY-7 AMB Questionnaire NERY-7 Date NERY - 7 assessed: 07/22/24 Feeling nervous, anxious, or on edge: 0 = Not at all Not being able to stop or control worryin = Not at all Worrying too much about different things: 0 = Not at all Trouble relaxin = Not at all Being so restless that it is hard to sit still: 0 = Not at all Becoming easily annoyed or irritable: 0 = Not at all Feeling afraid as if something awful might happen: 0 = Not at all Total NERY-7 score (0-4 normal; 5-9 mild; 10-14 moderate; 15-21 severe): 0 Source: Developed by Drs. Seamus Das, Suzie Horton, Tino Pizarro and colleagues, with an educational jerad from [employer]. NERY-7 Assessment Billing NERY-7 Assessment Tool: NERY-7 Assessment 71341 Review of Systems Const Denies body aches, Denies fatigue, Denies fever(s), Denies headache(s) and Denies weakness Eyes Details: goes to [facility] Denies change in vision ENT Denies dizziness, Denies headache(s), Denies nasal congestion, Denies nasal discharge and Denies sore throat Card Denies chest pain, Denies lightheadedness and Denies dyspnea Resp Denies chest congestion, Denies cough, Denies dyspnea and Denies wheezing GI Denies abdominal pain, Denies change in bowel habits and Denies heartburn Denies urinary frequency, Denies dysuria and Denies urinary urgency Musc Reports no additional complaints Skin/Breast Denies breast swelling, Denies breast pain, Denies breast mass, Denies lesions and Denies rash Neuro Denies dizziness, Denies headache(s) and Denies weakness Psych Reports no additional complaints Endo Denies fatigue, Denies polydipsia and Denies polyuria Spike/Lymph Reports no additional complaints Aller/Immun Denies seasonal rhinorrhea and Denies wheezing Physical exam (Primary Care) Vital Signs: Last Vital Signs Temp 98.1 F 07/22/24 09:18 Pulse 98 07/22/24 09:54 Resp 18 07/22/24 09:18 BP 130/80 07/22/24 09:54 Pulse Ox 98 07/22/24 09:18 Oxygen Delivery Method Room Air 07/22/24 09:18 BMI result Body Mass Index 29.3 Tobacco/Smoking Status: Tobacco use Status Tobacco use date assessed 07/22/24 07/22/24 09:08 Patient Tobacco Use Status Former Tobacco user 07/22/24 09:06 e-Cigarette/Vaping Use Never Used 07/22/24 09:06 PHQ-9: PHQ-9 Score PHQ-9: Total score 0 07/22/24 09:55 Depression Screening Interpretation: Negative Thrive Assessment: Date of Thrive Assessment Date Thrive assessed 07/15/24 07/22/24 09:06 Currently or been in a relationship where the following occur: No concerns reported Advance Care Planning discussion: Completed/Scanned Date of discussion: 07/22/24 Who was present: Patient Forms completed: Health Care Proxy and MOLST Time spent: 16-45 minutes Actual minutes spent: 5 Const General: comfortable and no acute distress Orientation/consciousness: patient oriented x3 HENMT Ears: hearing grossly normal bilaterally, external ears normal, TM's normal bilaterally and EAC's normal General nose exam: Normal external nose present and No nasal discharge present Mouth: oropharynx normal and moist mucous membranes Teeth and gingiva: dentures and edentulous Eyes General: appearance normal, both eyes and all related structures Neck Neck: Yes full ROM, Yes no lymphadenopathy and Yes supple Chest Chest palpation & inspection: normal inspection of the chest and normal palpation of entire chest wall Breast/axilla inspection: normal inspection of the breasts Breast/axilla palpation: normal palpation of the breasts Resp Effort & Inspection: normal respiratory effort and able to speak in complete sentences Auscultation: clear to auscultation bilaterally Cardio Rate: regular rate Rhythm: regular rhythm Heart sounds: S1 normal heart sound present and S2 normal heart sound present Peripheral pulses: Peripheral pulses 2+ throughout GI Inspection: Yes normal to inspection Palpation (GI): Soft to palpation, nontender, no guarding and no masses Auscultation: normal bowel sounds General: Yes no CVA tenderness Back/Spine/Pelvis Back: no CVA tenderness Skin General skin exam: no rashes or lesions noted Neuro General: patient oriented x3, gait normal, tone normal, moves all extremities, Normal light touch and pain sensation and no focal motor deficits Cognition (Neuro): normal cognition Gait exam (Neuro): Normal gait present Motor exam (neuro): 5/5 motor strength present throughout Extrem General: Yes full ROM, Yes no joint enlargement, Yes no clubbing, cyanosis or edema, Yes no calf tenderness and Yes normal gait Psych Appearance: grossly normal and well kempt Mental Status: mental status grossly normal Speech and movement: Normal speech and movement present Affect: normal affect Attitude: cooperative Thought process: Normal thought process present Thought content: Normal thought content present Results Reviewed Results Reviewed: Laboratory Tests Coding Level of Care Code Est Pt Prev Care >65y(00704) Diagnoses Hyperplastic polyp of sigmoid colon K63.5 Impaired fasting glucose R73.01 Essential hypertension I10 Immunization refused Z28.21 Advanced directives, counseling/discussion Z71.89 Annual visit for general adult medical examination with abnormal findings Z00.01 Additional Codes PHQ-9 - 65728 - PHQ-9 Billing: Yes ([id number]) NERY-7 Assessment Billing - NERY-7 Assessment Tool: NERY-7 Assessment 46513 ([id number]) Vital Signs *Quality* - Advance Care Planning discussion: Completed/Scanned ([id number]) Vital Signs *Quality* - Time spent: 16-45 minutes ([id number]) Assessment & Plan Assessment & Plan (1) Hyperplastic polyp of sigmoid colon: Comment: Reviewed procedure report and pathology Code(s): K63.5 - Polyp of colon Category: Medical Plan: Colonoscopy due again in 2030 (2) Impaired fasting glucose: Code(s): R73.01 - Impaired fasting glucose Category: Medical Plan: Your previous fasting blood sugars were elevated above 100 mg/dL. Impaired glucose metabolism increases the risk for developing diabetes mellitus type 2, as well as heart attack and stroke later on. Lifestyle changes that promotes weight loss, healthy eating habits, and regular exercise are important, and can prevent the progression to diabetes (3) Essential hypertension: Code(s): I10 - Essential (primary) hypertension Category: Medical Plan: Blood pressure at goal of less than 130/80. Continue with current medication. Reinforced importance of following a low sodium diet, getting regular exercise, and lowering stress levels. (4) Immunization refused: Code(s): Z28.21 - Immunization not carried out because of patient refusal Category: Medical Plan: Patient does not want to get any further vaccinations (5) Advanced directives, counseling/discussion: Code(s): Z71.89 - Other specified counseling Plan: Initiated the conversation about Advanced Directives. Advanced Directives help patients prepare for current and future decisions about their medical treatment and place of care. Discussed with patient that it is a process where a patients current condition and prognosis are reviewed, their wishes for information regarding their illness are elicited, and likely medical dilemmas are presented and options discussed. Healthcare proxy form and MOLST form completed today. These forms can be amended as needed, reviewed yearly and make changes as needed (6) Annual visit for general adult medical examination with abnormal findings: Code(s): Z00.01 - Encounter for general adult medical examination with abnormal findings Plan: Will check appropriate labs. Up-to-date with her eye exams, goes to [facility] . Take adequate calcium in diet and vitamin-D 3 at 2000 IU per cap once a day, in addition to weight-bearing exercises to help maintain good muscle tone and weight control. Instructed to do self-breast exam, and continue to get yearly mammogram. Declines to get any further vaccinations, up-to-date with her screening colonoscopy. Orders: Orders Vitamin D 25-OH Total 07/22/24 I10 - Essential (primary) hypertension, K63.5 - Polyp of colon, N95.9 - Unspecified menopausal and perimenopausal disorder, R73.01 - Impaired fasting glucose, Z00.01 - Encounter for general adult medical examination with abnormal findings, Z28.21 - Immunization not carried out because of patient refusal, Z71.89 - Other specified counseling, Z83.71 - Family history of colonic polyps Aspartate Amino Transferase 07/22/24 I10 - Essential (primary) hypertension, K63.5 - Polyp of colon, N95.9 - Unspecified menopausal and perimenopausal disorder, R73.01 - Impaired fasting glucose, Z00.01 - Encounter for general adult medical examination with abnormal findings, Z28.21 - Immunization not carried out because of patient refusal, Z71.89 - Other specified counseling, Z83.71 - Family history of colonic polyps Basic Metabolic Panel Fasting 07/22/24 I10 - Essential (primary) hypertension, K63.5 - Polyp of colon, N95.9 - Unspecified menopausal and perimenopausal disorder, R73.01 - Impaired fasting glucose, Z00.01 - Encounter for general adult medical examination with abnormal findings, Z28.21 - Immunization not carried out because of patient refusal, Z71.89 - Other specified counseling, Z83.71 - Family history of colonic polyps Lipid Panel 07/22/24 I10 - Essential (primary) hypertension, K63.5 - Polyp of colon, N95.9 - Unspecified menopausal and perimenopausal disorder, R73.01 - Impaired fasting glucose, Z00.01 - Encounter for general adult medical examination with abnormal findings, Z28.21 - Immunization not carried out because of patient refusal, Z71.89 - Other specified counseling, Z83.71 - Family history of colonic polyps Alanine Aminotransferase 07/22/24 I10 - Essential (primary) hypertension, K63.5 - Polyp of colon, N95.9 - Unspecified menopausal and perimenopausal disorder, R73.01 - Impaired fasting glucose, Z00.01 - Encounter for general adult medical examination with abnormal findings, Z28.21 - Immunization not carried out because of patient refusal, Z71.89 - Other specified counseling, Z83.71 - Family history of colonic polyps Hemoglobin A1c 07/22/24 I10 - Essential (primary) hypertension, K63.5 - Polyp of colon, N95.9 - Unspecified menopausal and perimenopausal disorder, R73.01 - Impaired fasting glucose, Z00.01 - Encounter for general adult medical examination with abnormal findings, Z28.21 - Immunization not carried out because of patient refusal, Z71.89 - Other specified counseling, Z83.71 - Family history of colonic polyps
[2024-07-22 09:18] VITALS: BP 150/80; PULSE 108; RESP 18; TEMP 36.7; O2SAT 98; BMI 29.3
[2024-07-22 09:54] VITALS: BP 130/80; PULSE 98
== END 2024-07-22 09:58 | disposition home or self-care (01) ==
PROVIDERS: PCP Internal Medicine; Visit Provider Internal Medicine
DX: Z00.00 Encounter for general adult medical examination without abnormal findings (principal); K63.5 Polyp of colon; R73.01 Impaired fasting glucose; I10 Essential (primary) hypertension; Z28.21 Immunization not carried out because of patient refusal; Z71.89 Other specified counseling

== ENCOUNTER 2024-07-22 08:33 | Outpatient (REF) | payer OTHER, SELFPAY ==
[2024-07-22 13:31] LABS: Alanine Aminotransferase 23 U/L (0-31); Anion Gap 17 (12-20); Aspartate Amino Transferase 29 U/L (5-31); Blood Urea Nitrogen 12 mg/dL (9-16); Calcium 9.9 mg/dL (8.4-10.2); Carbon Dioxide 22 mmol/L (22-29); Chloride 99 mmol/L (96-108); Cholesterol 194 mg/dL (<200); Estimated Glomerular Filt Rate > 60; Glucose Fasting 162 mg/dL (60-99); HDL Cholesterol 59 mg/dL (>40); LDL Cholesterol Calculated 99 mg/dL (<100); Potassium 3.5 mmol/L (3.3-5.1); Sodium 134 mmol/L (135-145); Triglycerides 183 mg/dL (<150)
[2024-07-22 13:36] LABS: Estimated Average Glucose 126 mg/dL; Hemoglobin A1C 162.6602 umol/L; Total Hemoglobin (HGBA1C) 3859.6229 umol/L
[2024-07-22 13:49] LABS: Vitamin D 25-OH Total 25.8 ng/mL (>30)
== END 2024-07-22 08:34 | disposition home or self-care (01) ==
LOC: HO.HMGCLDS 08:33
PROVIDERS: PCP Internal Medicine; Visit Provider Internal Medicine
DX: Z00.01 Encounter for general adult medical examination with abnormal findings (principal); K63.5 Polyp of colon; R73.01 Impaired fasting glucose; I10 Essential (primary) hypertension; N95.9 Unspecified menopausal and perimenopausal disorder; Z71.89 Other specified counseling; Z83.719 Family history of colon polyps, unspecified; Z28.21 Immunization not carried out because of patient refusal
CPT/HCPCS: 36415; 80048; 80061; 82306; 83036; 84450; 84460; 96127

== ENCOUNTER 2025-01-19 07:58 | Outpatient (AMB) | payer OTHER, SELFPAY ==
[2025-01-19 08:31] VITALS: BP 126/66; PULSE 101; RESP 16; TEMP 36.7; O2SAT 95; BMI 28.2
--- NOTE | 2025-01-19 08:31 | MHC.PC.OV ---
Vital Signs 01/19/25 08:31 Height 5 ft 1 in Weight 149 lb BMI 28.2 BP 126/66 Blood Pressure Location Rt brachial Position Sitting Respiration 16 Pulse 101 H Pulse Source Palpation Temp 98.0 F Temp Source Oral Pulse Oximetry (%) 95 Oxygen Delivery Method Room Air Intake Visit Reasons: 6m follow up Intake Note: Pt is here today for her 6mo. f/u Allergies No Known Allergies Allergy (Verified 01/19/25 08:37) Medication List - Last Reconciled 01/19/25 by Lisbeth Brito MD amlodipine 10 mg PO DAILY blood pressure monitor check blood pressure once a day cholecalciferol (vitamin D3) 50 mcg PO DAILY lisinopril-hydrochlorothiazide 20-25 mg 1 tab PO QAM metoprolol succinate ER 25 mg PO DAILY Tobacco use date assessed: 01/19/25 Fall risk assessment: No Falls in past year Last assessed Fall Risk: 01/19/25 Dental Screening Dental Screen Date: 01/19/25 Did you have a dental visit in the last 12 months?: No Did you have a dental problem in the last 6 months where you did not have access to dental care?: No Was dental information given to patient?: Patient declined HPI 6m follow up HPI Details - The patient is a 64-year-old female presenting for follow-up regarding hypertension and prediabetes - Hypertension: Reports elevated heart rate during visits, but home blood pressure readings are normal. Blood pressure was lower than usual during this visit. Currently taking amlodipine 10 mg daily, metoprolol succinate 25 mg once a day, and lisinopril HCTZ 20-25 mg 1 tablet daily in a.m. - Prediabetes: Last A1c was 6.0, indicating prediabetes. Advised to monitor blood sugar levels to prevent diabetes. - Vitamin D deficiency: Previously low vitamin D levels. Engages in outdoor activities like fishing, advised to take supplements in winter. - Social History: Enjoys fishing and outdoor activities with her , contributing to physical activity. [facility] Medical History Immunization refused Intermittent palpitations Influenza vaccination declined Menopausal and postmenopausal disorder Impaired fasting glucose Essential hypertension Surgical History No pertinent past surgical history Family History Father Medical history non-contributory Mother Bladder cancer Breast cancer Maternal Aunt Breast cancer Brother No problems noted. Sister Colon adenomas Daughter No problems noted. Social History Housing: Apartment Alcohol intake: current Patient Tobacco Use Status: Former Tobacco user Years Smoked: 25 yrs e-Cigarette/Vaping Use: Never Used Second Hand Smoke Exposure: No service: No Current occupational status: retired Current occupation: [employer] Current occupational exposures/hazards: No Cognitive needs: No Hearing needs: No Vision needs: Yes Questionnaire Thrive Questionnaire Date Thrive assessed: 07/15/24 I am a: Patient What is your living situation today?: I have a steady place to live Within the past 12 months, did the food you bought not last and you didn't have the money to get more?: Never true Within the past 12 months, did you worry whether your food would run out before you got money to buy more?: Often true Do you have trouble paying for medicines?: No Do you have trouble getting transportation to medical appointments?: No Do you have trouble paying your heating and electricity bill?: No Do you have trouble taking care of your child, family member or friend?: No Do you have trouble with day-to-day activities such as bathing, preparing meals, shopping, managing finances, etc.?: No Are you currently unemployed and looking for a job?: No Are you interested in more education?: No Please select the resources that you would like help with: None Currently or been in a relationship where the following occur: No concerns reported THRIVE Score: 1 NERY-7 AMB Questionnaire NERY-7 Date NERY - 7 assessed: 07/22/24 Source: Developed by Drs. Seamus Das, Suzie Horton, Tino Pizarro and colleagues, with an educational jerad from [employer]. Review of Systems Const Denies body aches, Denies fatigue, Denies fever(s), Denies headache(s) and Denies weakness Eyes Details: goes to [facility] Denies change in vision ENT Denies dizziness, Denies headache(s) and Denies nasal congestion Card Denies chest pain, Denies lightheadedness and Denies dyspnea Resp Denies chest congestion, Denies cough, Denies dyspnea and Denies wheezing GI Denies abdominal pain, Denies change in bowel habits and Denies heartburn Denies urinary frequency, Denies dysuria and Denies urinary urgency Musc Reports no additional complaints Skin/Breast Denies breast swelling, Denies breast pain, Denies breast mass, Denies lesions and Denies rash Neuro Denies dizziness, Denies headache(s) and Denies weakness Psych Reports no additional complaints Endo Denies fatigue, Denies polydipsia and Denies polyuria Spike/Lymph Reports no additional complaints Aller/Immun Denies seasonal rhinorrhea and Denies wheezing Physical exam (Primary Care) Vital Signs: Last Vital Signs Temp 98.0 F 01/19/25 08:31 Pulse 101 H 01/19/25 08:31 Resp 16 01/19/25 08:31 BP 126/66 01/19/25 08:31 Pulse Ox 95 01/19/25 08:31 Oxygen Delivery Method Room Air 01/19/25 08:31 BMI result Body Mass Index 28.2 Tobacco/Smoking Status: Tobacco use Status Tobacco use date assessed 01/19/25 01/19/25 08:34 Patient Tobacco Use Status Former Tobacco user 01/19/25 08:34 e-Cigarette/Vaping Use Never Used 01/19/25 08:34 Thrive Assessment: Date of Thrive Assessment Date Thrive assessed 07/15/24 01/19/25 08:34 Currently or been in a relationship where the following occur: No concerns reported Const General: comfortable and no acute distress Orientation/consciousness: patient oriented x3 HENMT Ears: hearing grossly normal bilaterally, external ears normal, TM's normal bilaterally and EAC's normal General nose exam: Normal external nose present and No nasal discharge present Mouth: moist mucous membranes Teeth and gingiva: dentures Eyes General: appearance normal, both eyes and all related structures Neck Neck: Yes full ROM, Yes no lymphadenopathy and Yes supple Chest Chest palpation & inspection: normal inspection of the chest Breast/axilla palpation: normal palpation of the breasts Resp Effort & Inspection: normal respiratory effort and able to speak in complete sentences Auscultation: clear to auscultation bilaterally Cardio Rate: regular rate Rhythm: regular rhythm Heart sounds: S1 normal heart sound present and S2 normal heart sound present Peripheral pulses: Peripheral pulses 2+ throughout GI Inspection: Yes normal to inspection Palpation (GI): Soft to palpation, nontender, no guarding and no masses Auscultation: normal bowel sounds General: Yes no CVA tenderness Back/Spine/Pelvis Back: no CVA tenderness Skin General skin exam: no rashes or lesions noted Neuro General: patient oriented x3, gait normal, moves all extremities and no focal motor deficits Cognition (Neuro): normal cognition Gait exam (Neuro): Normal gait present Extrem General: Yes full ROM, Yes no joint enlargement, Yes no clubbing, cyanosis or edema, Yes no calf tenderness and Yes normal gait Coding Level of Care Code Est Pt Level 4 (21697) Complex EM visit Add On G2211 Diagnoses Essential hypertension I10 Impaired fasting glucose R73.01 Assessment & Plan Assessment & Plan (1) Essential hypertension: Code(s): I10 - Essential (primary) hypertension Category: Medical (2) Impaired fasting glucose: Code(s): R73.01 - Impaired fasting glucose Category: Medical Plan Blood pressure at goal of less than 130/80. Continue with current medication. Reinforced importance of following a low sodium diet, getting regular exercise, and lowering stress levels. The patient will have blood work done to monitor her A1c, cholesterol, liver function, and vitamin D levels. Her previous fasting blood sugars were elevated above 100 mg/dL. Impaired glucose metabolism increases the risk for developing diabetes mellitus type 2, as well as heart attack and stroke later on. Advised Lifestyle changes that promotes weight loss, healthy eating habits, and regular exercise, and help prevent the progression to diabetes . . She is advised to take vitamin D supplements during the winter months and to continue her outdoor activities, which are beneficial for her health. Patient was informed and verbally consented to the use of an ambient scribe for clinic note documentation during this visit. Orders: Orders Lipid Panel 01/19/25 I10 - Essential (primary) hypertension, N95.9 - Unspecified menopausal and perimenopausal disorder, R73.01 - Impaired fasting glucose Basic Metabolic Panel Fasting 01/19/25 I10 - Essential (primary) hypertension, N95.9 - Unspecified menopausal and perimenopausal disorder, R73.01 - Impaired fasting glucose Aspartate Amino Transferase 01/19/25 I10 - Essential (primary) hypertension, N95.9 - Unspecified menopausal and perimenopausal disorder, R73.01 - Impaired fasting glucose Vitamin D 25-OH Total 01/19/25 I10 - Essential (primary) hypertension, N95.9 - Unspecified menopausal and perimenopausal disorder, R73.01 - Impaired fasting glucose Alanine Aminotransferase 01/19/25 I10 - Essential (primary) hypertension, N95.9 - Unspecified menopausal and perimenopausal disorder, R73.01 - Impaired fasting glucose Hemoglobin A1c 01/19/25 I10 - Essential (primary) hypertension, N95.9 - Unspecified menopausal and perimenopausal disorder, R73.01 - Impaired fasting glucose
== END 2025-01-19 08:51 | disposition home or self-care (01) ==
LOC: HO.HMCC 07:59
PROVIDERS: PCP Internal Medicine; Visit Provider Internal Medicine
DX: I10 Essential (primary) hypertension (principal); R73.01 Impaired fasting glucose

== ENCOUNTER 2025-01-27 06:09 | Outpatient (REF) | payer OTHER, SELFPAY ==
[2025-01-27 10:32] LABS: Hemoglobin A1C 163.7865 umol/L; Total Hemoglobin (HGBA1C) 3914.7388 umol/L
[2025-01-27 11:01] LABS: Alanine Aminotransferase 32 U/L (0-31); Anion Gap 14 (12-20); Aspartate Amino Transferase 39 U/L (5-31); Blood Urea Nitrogen 10 mg/dL (9-16); Calcium 9.5 mg/dL (8.4-10.2); Carbon Dioxide 26 mmol/L (22-29); Chloride 95 mmol/L (96-108); Cholesterol 183 mg/dL (<200); Estimated Glomerular Filt Rate > 60; HDL Cholesterol 62 mg/dL (>40); Potassium 3.6 mmol/L (3.3-5.1); Sodium 131 mmol/L (135-145); Triglycerides 132 mg/dL (<150)
== END 2025-01-27 06:10 | disposition home or self-care (01) ==
LOC: HO.HMGCLDS 06:09
PROVIDERS: PCP Internal Medicine; Visit Provider Internal Medicine
DX: I10 Essential (primary) hypertension (principal); R73.01 Impaired fasting glucose; N95.9 Unspecified menopausal and perimenopausal disorder; Z13.21 Encounter for screening for nutritional disorder
CPT/HCPCS: 36415; 80048; 80061; 82306; 83036; 84450; 84460